=== PATIENT | female | born 1970 | race Caucasian/White ===

== ENCOUNTER 2020-03-28 19:14 | Emergency (ER) | payer MEDICAID, OTHER ==
[~2020-03-28] VITALS: Ht 157.5 cm; Wt 72.1 kg
[2020-03-28 19:27] VITALS: BP 145/97
--- NOTE | 2020-03-28 19:56 | NUR ---
49 Y/O F PRESENTS TO ED C/O LEFT SIDE BACK PAIN X1 WEEK THAT NOW RADIATES TO LEFT SIDE ABD X 1 DAY. PT DENIES PAIN/DISCHARGE DURING URINATION. PT PROVIDED URINE SAMPLE, URINE RED IN COLOR. DENIES N/V/D/TRAUMA/INJURY. ABD SOFT AND NON DISTENDED. 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 RR EVEN AND UNLABORED, SYMMETRICAL CHEST RISE NOTED. LUNG SOUNDS CLEAR. BED IN LOWEST POSITION, SIDE RAIL UP X1. WILL CONTINUE TO MONITOR. MHX: KIDNEY STONES, GALLBLADDER REMOVAL, HTN NKA
--- NOTE | 2020-03-28 19:57 | NUR ---
OBTAINED URINE SAMPLE.
[2020-03-28] MEDS ORDERED: NACL 0.9% 1,000 ML IV SCH (20:53)
[2020-03-28] MEDS ORDERED: KETOROLAC 30 MG/ML VIAL IVP ONE (20:55)
[2020-03-28 21:24] LABS: BASOPHILS % (AUTO) 0.5 % (0.0-2.0); EOSINOPHILS # (AUTO) 0.2 K/uL (0-0.4); HEMATOCRIT 38.7 % (36-48); HEMOGLOBIN 12.6 g/dL (12.0-16.0); LYMPHOCYTES # (AUTO) 2.4 K/uL (2.5-16.5); LYMPHOCYTES % (AUTO) 30.7 % (20.5-51.1); MEAN CORPUSCULAR HEMOGLOBIN 28 pg (27-31); MEAN CORPUSCULAR HGB CONC 33 g/dL (33-37); MEAN CORPUSCULAR VOLUME 85.1 fL (80-94); MONOCYTES # (AUTO) 0.7 K/uL (0.8-1.0); MONOCYTES % (AUTO) 8.6 % (1.7-9.3); NEUTROPHILS # (AUTO) 4.6 K/uL (1.8-7.7); NEUTROPHILS % (AUTO) 58.2 % (42.2-75.2); PLATELET COUNT (AUTO) 372 K/uL (140-450); RED BLOOD CELL COUNT(AUTO) 4.55 MIL/uL (4.20-5.40); RED CELL DISTRIBUTION WIDTH 16.1 % (11.6-13.7); WHITE BLOOD COUNT (AUTO) 7.8 K/uL (4.8-10.8)
[2020-03-28 21:48] LABS: ALBUMIN 3.7 g/dL (3.4-5.0); ANION GAP 11.8 (8-16); CARBON DIOXIDE 28.7 mmol/L (21-32); CREATININE 1.1 mg/dL (0.6-1.3); POTASSIUM 3.5 mmol/L (3.5-5.1); TOTAL BILIRUBIN 0.2 mg/dL (0.0-1.0)
[2020-03-28 22:54] LABS: APPEARANCE,URINE BLOODY (CLEAR); BILIRUBIN,URINE NEGATIVE (NEGATIVE); BLOOD, URINE 3+ (NEGATIVE); LEUKOCYTE ESTERASE ,URINE NEGATIVE (NEGATIVE); NITRITE, URINE NEGATIVE (NEGATIVE); PH,URINE 6.5 (5.0-9.0); UGLUCOSE NEGATIVE (NEGATIVE)
[2020-03-28 22:55] LABS: COLOR,URINE BLOODY (YELLOW)
[2020-03-28 22:56] LABS: RBC,URINE TOO NUMEROUS TO COUN /HPF (0-5); WBC,URINE 0-5 /HPF (0-5)
[2020-03-28 23:11] VITALS: BP 145/97
[2020-03-28] MEDS ORDERED: MORPHINE SULFATE 4 MG/ML SYR IM ONE (23:20)
== END 2020-03-28 23:11 | disposition home or self-care (01) ==
LOC: MED 19:14
DX: N20.0 Calculus of kidney (principal); I10 Essential (primary) hypertension; Z87.442 Personal history of urinary calculi; Z90.49 Acquired absence of other specified parts of digestive tract
CPT/HCPCS: 36415; 74176; 80053; 81001; 81025; 85025; 96372; 96374; 99285; J1885; J2270

== ENCOUNTER 2021-09-08 07:15 | Emergency (ER) | payer OTHER ==
[~2021-09-08] VITALS: Ht 157.5 cm; Wt 74.4 kg
[2021-09-08 07:21] VITALS: BP 155/84
--- NOTE | 2021-09-08 07:42 | NUR ---
DR. POE AT BEDSIDE EVALUATING PATIENT
--- NOTE | 2021-09-08 07:57 | NUR ---
LABS DRAWN AND TAKEN TO THE LAB.
[2021-09-08] MEDS: KETOROLAC 30 MG/ML VIAL IVP ONE (07:59)
[2021-09-08 08:01] LABS: BASOPHILS % (AUTO) 0.5 % (0.0-2.0); EOSINOPHILS # (AUTO) 0.2 K/uL (0-0.4); HEMATOCRIT 29.2 % (36-48); HEMOGLOBIN 9.8 g/dL (12.0-16.0); LYMPHOCYTES # (AUTO) 1.7 K/uL (2.5-16.5); LYMPHOCYTES % (AUTO) 22.7 % (20.5-51.1); MEAN CORPUSCULAR HEMOGLOBIN 29 pg (27-31); MEAN CORPUSCULAR HGB CONC 34 g/dL (33-37); MEAN CORPUSCULAR VOLUME 85.7 fL (80-94); MONOCYTES # (AUTO) 0.6 K/uL (0.8-1.0); MONOCYTES % (AUTO) 8.4 % (1.7-9.3); NEUTROPHILS % (AUTO) 65.4 % (42.2-75.2); PLATELET COUNT (AUTO) 550 K/uL (140-450); RED BLOOD CELL COUNT(AUTO) 3.41 MIL/uL (4.20-5.40); RED CELL DISTRIBUTION WIDTH 14.8 % (11.6-13.7); WHITE BLOOD COUNT (AUTO) 7.7 K/uL (4.8-10.8)
--- NOTE | 2021-09-08 08:07 | NUR ---
50 Y/O f C/O ABDOMINAL PAIN 03/11 DESCRIBES SHARP RADIATES TO BACK X1DAY. DENIES TRAUMA/INURY TO AREA. PT STATES HYSTERECTOMY 08/10 AND EMERGENCY SX TO REPAIR HYMEN TEAR DONE 09/01. DENIES N/V, DENIES FEVER/CHILLS. ABDOMEN IS SOFT, ROUND, NON-TENDER TO PALPATION, BOWEL SOUNDS ACTIVE X4. PMH: HTN, HYPOTHYROIDISM NKA
[2021-09-08] MEDS: NACL 0.9% 1,000 ML IV SCH (08:18)
[2021-09-08 08:22] LABS: ALBUMIN 3.6 g/dL (3.4-5.0); ANION GAP 12.4 (8-16); CARBON DIOXIDE 26.3 mmol/L (21-32); CREATININE 0.9 mg/dL (0.6-1.3); POTASSIUM 3.7 mmol/L (3.5-5.1); TOTAL BILIRUBIN 0.3 mg/dL (0.0-1.0)
--- NOTE | 2021-09-08 08:24 | NUR ---
50 Y/O F C/O LOW BACK PAIN 6/10 SHARP AND WORSE WHEN WALKING. PAIN RADIATES TO HER L ABD AREA. PT HAD HYSTERECTOMY LAST MOTHE AUG 10 AND ANOTHER EMERGENCY SURGERY ON Sep TO THE SAME AREA TO FIX A TEAR. PT IS ON DOXYCYLINE FOR 5 DAYS NOW. ALLERGIES: MILK PMH: HTN, HYPOTHYRODISM
[2021-09-08 08:35] LABS: BILIRUBIN,URINE NEGATIVE (NEGATIVE); BLOOD, URINE 2+ (NEGATIVE); COLOR,URINE YELLOW (YELLOW); LEUKOCYTE ESTERASE ,URINE 1+ (NEGATIVE); NITRITE, URINE NEGATIVE (NEGATIVE); UGLUCOSE NEGATIVE (NEGATIVE)
[2021-09-08 08:45] LABS: APPEARANCE,URINE SLIGHTLY HAZY (CLEAR); WBC,URINE 0-5 /HPF (0-5)
--- NOTE | 2021-09-08 08:48 | NUR ---
Patient for CT Scan via wheelchair at this time.
[2021-09-08] MEDS ORDERED: TAMS0.4C96 PO (09:42)
[2021-09-08] MEDS ORDERED: NAPR-54 PO (09:42)
[2021-09-08 09:56] VITALS: BP 117/67
--- NOTE | 2021-09-08 09:56 | NUR ---
Patient discharged with v/s stable. Written and verbal after care instructions ABOUT KIDNEY STONES given and explained. Patient alert, oriented and verbalized understanding of instructions. Ambulatory with steady gait. All questions addressed prior to discharge. ID band removed. Patient advised to follow up with PMD. Rx of NAPROXEN AND TAMSULOSIN HCL given.
--- NOTE | 2021-09-08 12:00 | NUR ---
The patient's care was reviewed and supervised by Raven Gilliland RN.
== END 2021-09-08 09:56 | disposition home or self-care (01) ==
LOC: MED 07:15
DX: N20.0 Calculus of kidney (principal); I10 Essential (primary) hypertension; Z90.49 Acquired absence of other specified parts of digestive tract; Z90.710 Acquired absence of both cervix and uterus; Z79.899 Other long term (current) drug therapy; Z79.1 Long term (current) use of non-steroidal anti-inflammatories (NSAID)
CPT/HCPCS: 36415; 74177; 80053; 81001; 83690; 85025; 87086; 96361; 96374; 99285; J1885; J7030; Q9967